=== PATIENT | male | born 1980 | race Caucasian/White ===

== ENCOUNTER → 2024-02-06 | Emergency (ER) | payer SELFPAY ==
[~2024-02-06] VITALS: Ht 157.5 cm; Wt 72.6 kg
[2024-02-06 12:16] VITALS: BP 135/84; PULSE 99; RESP 16; TEMP 98.5; O2SAT 98
[2024-02-06] MEDS: TETANUS, DIPHTHERIA, PERTUSSIS VAC/PF 0.5ML (>10YR OLD) IM ONE (13:00)
[2024-02-06] MEDS: LIDOCAINE HCL 1% 20ML VIAL INFIL ONE (13:00)
== END | disposition home or self-care (01) ==
LOC: ER 12:10
DX: S01.01XA Laceration without foreign body of scalp, initial encounter (principal); E11.9 Type 2 diabetes mellitus without complications; X58.XXXA Exposure to other specified factors, initial encounter; Y93.89 Activity, other specified; Y92.89 Other specified places as the place of occurrence of the external cause; Y99.8 Other external cause status
CPT/HCPCS: 90715; 12002; 90471; 99283; J3490; Z7610 ×2

== ENCOUNTER 2024-02-15 18:12 | Emergency (ER) | payer SELFPAY ==
[~2024-02-15] VITALS: Ht 172.7 cm; Wt 72.0 kg
[2024-02-15 18:17] VITALS: BP 111/81; PULSE 98; RESP 20; TEMP 98.1; O2SAT 96
== END 2024-02-15 19:45 | disposition left against medical advice (07) ==
LOC: ER 18:12
DX: Z48.02 Encounter for removal of sutures (principal); Z53.21 Procedure and treatment not carried out due to patient leaving prior to being seen by health care provider